=== PATIENT | male | born 1945 | race Two or more races ===

== ENCOUNTER 2023-06-20 11:16 | Emergency (ER) | payer OTHER ==
[~2023-06-20] VITALS: Ht 170.2 cm; Wt 97.5 kg
[2023-06-20] MEDS ORDERED: TAMS0.4C PO (11:31)
[2023-06-20] MEDS ORDERED: NEURONTIN600 M1 PO (11:32)
[2023-06-20] MEDS ORDERED: CYMBALTA60 MG PO (11:32)
[2023-06-20] MEDS ORDERED: AMIODARONE HCL100 MG PO (11:33)
[2023-06-20] MEDS ORDERED: NAMENDA5 MG PO (11:33)
[2023-06-20] MEDS ORDERED: HUMALOG100 UNIT/2 IM (11:34)
[2023-06-20] MEDS ORDERED: LANTUS SOL100 UNIT/1 PO (11:34)
[2023-06-20] MEDS ORDERED: LOSARTAN POTAS100 MG PO (11:34)
== END 2023-06-20 13:54 | disposition home or self-care (01) ==
LOC: ER 11:16
DX: S30.0XXA Contusion of lower back and pelvis, initial encounter (principal); W18.39XA Other fall on same level, initial encounter; Y93.89 Activity, other specified; Y92.89 Other specified places as the place of occurrence of the external cause; I25.10 Atherosclerotic heart disease of native coronary artery without angina pectoris; I10 Essential (primary) hypertension; E11.9 Type 2 diabetes mellitus without complications; Z79.4 Long term (current) use of insulin
CPT/HCPCS: 72100; 96372; 99284; J1885